=== PATIENT | female | born 1970 | race Native Hawaiian/Other Pacific Islander ===

== ENCOUNTER 2017-02-28 10:31 | Outpatient (CLI) | payer BC | END 2017-02-28 19:03 | disposition home or self-care (01) | LOC: MAMMO 10:31 | DX: Z12.31 Encounter for screening mammogram for malignant neoplasm of breast (principal) | CPT/HCPCS: G0202-TC ==

== ENCOUNTER 2017-03-09 08:41 | Outpatient (CLI) | payer BC | END 2017-03-09 19:08 | disposition home or self-care (01) | LOC: MAMMO 08:41 | DX: R92.8 Other abnormal and inconclusive findings on diagnostic imaging of breast (principal) | CPT/HCPCS: G0206-TC ==

== ENCOUNTER 2017-05-11 11:26 | Outpatient (CLI) | payer BC ==
[~2017-05-11] VITALS: Ht 162.6 cm; Wt 65.3 kg
== END 2017-05-11 12:15 | disposition home or self-care (01) ==
LOC: INF 11:26
DX: N39.0 Urinary tract infection, site not specified (principal)
CPT/HCPCS: 96372; J0696

== ENCOUNTER 2017-09-13 03:30 | Outpatient (CLI) | payer BC | END 2017-09-13 19:18 | disposition home or self-care (01) | LOC: MAMMO 03:30 | DX: N63.11 Unspecified lump in the right breast, upper outer quadrant (principal) ==

== ENCOUNTER 2017-09-26 15:24 | Outpatient (CLI) | payer BC | END 2017-09-27 04:46 | disposition home or self-care (01) | LOC: US 15:24 | DX: R92.8 Other abnormal and inconclusive findings on diagnostic imaging of breast (principal) ==

== ENCOUNTER 2018-11-23 00:32 | Emergency (ER) | payer BC ==
[~2018-11-23] VITALS: Ht 162.6 cm; Wt 65.8 kg
[2018-11-23 02:22] VITALS: BP 134/85; TEMP 98.8
== END 2018-11-23 02:55 | disposition home or self-care (01) ==
LOC: ED 00:32
DX: F43.22 Adjustment disorder with anxiety (principal)
CPT/HCPCS: 99282

== ENCOUNTER 2019-01-06 14:32 | Outpatient (CLI) | payer BC | END 2019-01-06 22:48 | disposition home or self-care (01) | LOC: MAMMO 14:32 | DX: N63.10 Unspecified lump in the right breast, unspecified quadrant (principal); Z12.31 Encounter for screening mammogram for malignant neoplasm of breast ==

== ENCOUNTER 2020-01-09 12:45 | Outpatient (CLI) | payer BC | END 2020-01-09 19:02 | disposition home or self-care (01) | LOC: MAMMO 12:45 | DX: Z12.31 Encounter for screening mammogram for malignant neoplasm of breast (principal) ==

== ENCOUNTER → 2020-11-01 | Outpatient (CLI) | payer BC, OTHER | LOC: INF 17:09 | PROVIDERS: ATTEND Internal Medicine | DX: Z23 Encounter for immunization (principal) | CPT/HCPCS: 96372 ==

== ENCOUNTER 2020-11-25 08:06 | Outpatient (CLI) | payer BC, OTHER | END 2020-11-25 23:59 | disposition home or self-care (01) | LOC: INF 08:06 | PROVIDERS: ATTEND Internal Medicine | DX: Z23 Encounter for immunization (principal) | CPT/HCPCS: 96372 ==

== ENCOUNTER 2021-05-06 10:57 | Outpatient (CLI) | payer BC | END 2021-05-06 19:04 | disposition home or self-care (01) | LOC: MAMMO 10:57 | PROVIDERS: ATTEND Obstetrics & Gynecology | DX: Z12.31 Encounter for screening mammogram for malignant neoplasm of breast (principal) ==

== ENCOUNTER 2023-03-06 12:11 | Outpatient (CLI) | payer BC | END 2023-03-06 19:26 | disposition home or self-care (01) | LOC: MAMMO 12:11 | PROVIDERS: ATTEND Obstetrics & Gynecology | DX: Z12.31 Encounter for screening mammogram for malignant neoplasm of breast (principal) ==